=== PATIENT | male | born 1980 | race Caucasian/White ===

== ENCOUNTER 2024-06-15 00:43 | Emergency (ER) | payer SELFPAY ==
[~2024-06-15] VITALS: Ht 177.8 cm; Wt 100.0 kg
[2024-06-15 00:56] VITALS: O2SAT 96
[2024-06-15 02:28] VITALS: BP 140/81; PULSE 80; RESP 20; TEMP 37.00296; O2SAT 100
== END 2024-06-15 02:31 | disposition home or self-care (01) ==
LOC: ER 00:56
DX: I83.892 Varicose veins of left lower extremity with other complications (principal); I10 Essential (primary) hypertension
CPT/HCPCS: 12001; 99282; Z7610 ×2

== ENCOUNTER 2024-06-21 08:07 | Emergency (ER) | payer SELFPAY ==
[~2024-06-21] VITALS: Ht 177.8 cm; Wt 97.5 kg
[2024-06-21 08:19] VITALS: O2SAT 97
[2024-06-21 08:47] LABS: BASOPHILS % 0.6 % (0.0-2.0); EOSINOPHILS % 1.4 % (0.0-5.0); HEMATOCRIT. 43.2 % (42.0-52.0); HEMOGLOBIN. 13.7 g/dL (14.0-18.0); LYMPHOCYTES % 16.5 % (20.0-50.0); MEAN CORPUSCULAR HEMOGLOBIN 28.6 pg (28.0-32.0); MEAN CORPUSCULAR HGB CONC 31.7 g/dL (31.0-37.0); MONOCYTES % 9.4 % (2.0-8.0); NEUTROPHILS % 72.1 % (40.0-76.0); PLATELET 291 x1000/uL (130-400); RED CELL DISTRIBUTION WIDTH 13.8 % (11.6-14.6); WHITE BLOOD COUNT 12.4 x1000/uL (4.5-11.0)
[2024-06-21 08:50] LABS: CHLORIDE 108 mEq/L (98-107); POTASSIUM 4.1 mEq/L (3.5-5.1)
[2024-06-21 08:51] LABS: SODIUM 139 mEq/L (136-145)
[2024-06-21 08:52] LABS: CARBON DIOXIDE 25 mEq/L (21-32)
[2024-06-21 08:57] LABS: CREATININE 0.7 mg/dL (0.6-1.3); GLUCOSE 108 mg/dL (70-105); UREA NITROGEN BLOOD 7 mg/dL (9-23)
[2024-06-21 09:26] LABS: CLARITY URINE CLEAR (CLEAR); COLOR URINE YELLOW (YELLOW); GLUCOSE URINE NEGATIVE (NEGATIVE); KETONES URINE NEGATIVE (NEGATIVE); LEUKOCYTE ESTERASE URINE TRACE (NEGATIVE); NITRITE URINE NEGATIVE (NEGATIVE); OCCULT BLOOD URINE NEGATIVE (NEGATIVE); PH URINE 6.5 (4.5-8.0); PROTEIN URINE NEGATIVE (NEGATIVE); SPECIFIC GRAVITY URINE 1.016 (1.005-1.030); UROBILINOGEN URINE 0.2 E.U./dL (0.2-1.0)
[2024-06-21] MEDS ORDERED: IBUPROFEN 800MG TABLET PO ONE (09:30)
[2024-06-21 10:02] LABS: SQUAMOUS EPITHELIAL CELL URINE NONE SEEN /lpf (RARE/1+)
[2024-06-21 10:05] LABS: MUCUS URINE TRACE /lpf (NONE/TRACE)
[2024-06-21 10:06] LABS: RBC URINE 0-2 /hpf (0-2)
[2024-06-21 10:07] LABS: BACTERIA URINE TRACE
[2024-06-21 10:14] VITALS: BP 143/99
[2024-06-21] MEDS: IBUPROFEN 800MG TABLET PO NR (10:14)
[2024-06-21] MEDS ORDERED: LIDOCAINE HCL 1% 20ML VIAL INFIL ONE (10:30)
[2024-06-21 11:00] VITALS: PULSE 94; RESP 18; TEMP 36.78072; O2SAT 97
[2024-06-21] MEDS: CEFTRIAXONE SODIUM 1G VIAL IM SCH (11:00)
[2024-06-21] MEDS: CEFTRIAXONE SODIUM 1G VIAL IM ONE (11:01)
[2024-06-23 04:07] LABS: CHLAMYDIA TRACHOMATIS NAA Positive (Negative); NEISSERIA GONORRHOEAE NAA Negative (Negative)
== END 2024-06-21 12:02 | disposition home or self-care (01) ==
LOC: ER 08:07
DX: N45.1 Epididymitis (principal); I10 Essential (primary) hypertension
CPT/HCPCS: 99285; 93976; 87491; 87591; 80048; 81003; 85025; 87086; 36415; 76870; 96372; J0696; J3490

== ENCOUNTER 2024-06-23 11:07 | Emergency (ER) | payer MEDICAID ==
[~2024-06-23] VITALS: Ht 177.8 cm; Wt 98.0 kg
[2024-06-23 11:09] VITALS: O2SAT 98
[2024-06-23 11:25] VITALS: BP 130/70; PULSE 70; RESP 16; TEMP 37.11408; O2SAT 98
== END 2024-06-23 12:22 | disposition home or self-care (01) ==
LOC: ER 11:07
DX: S81.812D Laceration without foreign body, left lower leg, subsequent encounter (principal); I10 Essential (primary) hypertension; Z48.02 Encounter for removal of sutures; X58.XXXD Exposure to other specified factors, subsequent encounter
CPT/HCPCS: 99281; Z7610 ×2